=== PATIENT | female | born 1975 | race Two or more races ===

== ENCOUNTER 2024-06-17 10:27 | Outpatient (AMB) | payer MEDICAID, SELFPAY ==
[2024-06-17 11:10] VITALS: BP 129/88; PULSE 63; RESP 20; TEMP 36.6; O2SAT 97; BMI 30.4
--- NOTE | 2024-06-17 11:10 | ORTHONT_ITS ---
Vital signs 06/17/24 11:10 Height 1.52 m Height Method Measured Weight 70.392 kg Weight Measurement Method Standing Scale BMI 30.4 BP 129/88 H Blood Pressure Source Automatic Cuff Blood Pressure Location Left Upper Arm Position Sitting Respiration 20 Pulse 63 Pulse Source Monitor Temp 97.8 F Temp Source Temporal Artery Scan Pulse Oximetry (%) 97 Oxygen Delivery Method Room Air Med/Allergies Allergies & Medications Allergies No Known Allergies Allergy (Verified 06/17/24 11:11) Medication Reconciliation metformin 500 mg tablet 500 mg PO HS 07/11/23 [History Confirmed 06/17/24] naproxen 500 mg tablet,delayed release 500 mg PO Q12H PRN Pain 01/26/24 [History Confirmed 06/17/24] aspirin 81 mg tablet,delayed release 81 mg PO BID #60 tabs 01/29/24 [Rx Confirmed 06/17/24] doxycycline hyclate 100 mg tablet 100 mg PO BID #14 tabs 01/29/24 [Rx Confirmed 06/17/24] pregabalin 75 mg capsule 75 mg PO BID #45 caps 01/29/24 [Rx Confirmed 06/17/24] sennosides 8.6 mg-docusate sodium 50 mg tablet (Senna-S) 1 tab-cap PO QDAY #30 tabs 01/29/24 [Rx Confirmed 06/17/24] oxycodone 5 mg tablet 5 mg PO Q6H PRN pain #28 tabs 02/13/24 [Rx Confirmed 06/17/24] acetaminophen 500 mg tablet (Acetaminophen Extra Strength) 1,000 mg (2 x 500 mg) PO Q6H PRN pain #90 tabs 05/11/24 [Rx Confirmed 06/17/24] Subjective Visit Visit for: knee Immunization / Flu Flu Vaccine in the Last 12 Months: No Flu Vaccine Exclusion Criteria: Refused by Patient History of Present Illness Chief complaint: PRE OP LEFT TKA Patient is doing well. She reports that she is doing well. She is using no assistive device and is very happy. The left side is now affecting her quality of life and happiness. She has tried multiple antiinflammatories, injections, and PT. Personal History Red flag PMH: none Pain Pain level (0-10): 8 Pain duration: CONSTANT Pain location: inside (medial) (LEFT KNEE) Pain quality: sharp (LEFT KNEE) and aching (LEFT KNEE) Pain timing: night (LEFT KNEE) and increases with activity (LEFT KNEE) Associated signs & symptoms: none Ambulatory data Ambulatory device: none Treatments Number of previous injections: 3 Improvement with previous injections: No Number of Physical Therapy sessions: 3 Improvement with PT: No Improvement with NSAIDS: yes Review of Systems Review of Systems: All systems negative unless otherwise noted in HPI. Exam Exam Patient is in no acute distress and is cooperative with the examination today. Breathing is nonlabored. In no respiratory distress. Bilateral extremities were evaluated and demonstrates sensation intact to light touch. Palpable pedal pulses are present. No significant edema is present. Bilateral hips were examined. The patient has no pain with log roll of the hips. Internal rotation to 30 degrees and external rotation to 30 degrees is painless. Negative FADIR. The left knee was examined. The left knee is in [varus] alignment. Range of motion from [0-115] degrees. Knee is stable to varus and valgus as well as AP translation with <5mm. Patient has a [negative] Mc[place]. There is [no] pain with patellofemoral compression and [no] crepitus noted. The knee is [tender] to palpation [medially]. Right knee incision is clean, dry, and intact Assessment and Plan Problem List (1) History of total right knee replacement: Status: Acute Plan: Patient is doing well s/p r total knee replacement. She has been late to start outpatient PT but is very happy. She has significant knee pain in her left knee with [id number] arthritis. She would like to get her left knee replaced. We discussed her left total knee replacement including nonoperative and operative options. She is tried injections, anti-inflammatories, and physical therapy. She is scheduled for surgery on Friday., The nature and purpose of the total knee replacement, alternative method(s) of treatment, the material risks involved, and the possibility of complications were fully explained to the patient. The patient does NOT have any of the following contraindications to TKA: - Active infection of the knee joint, OR - Active systemic bacteremia, OR - Active skin infection or open wound at surgical site, OR - Neuropathic arthritis, OR - Severe, rapidly progressive neurological disease, OR - Severe medical condition that makes risks of surgery outweigh the potential benefit The patient was told the most common risks and complications associated with a total knee replacement include, but are not limited to: blood clots in the leg, fatal pulmonary embolism, dislocation of the prosthesis, intraoperative and postoperative fractures of the femur or tibia, infection, failure of the prosthesis or grafting materials, complications from anesthesia, reactions to blood transfusions, postoperative leg length inequality, instability of the knee replacement, nerve damage or injury, vascular injury, delayed wound healing, infection, other injury or even . In addition, there are risks associated with anesthesia given during this operation. Also, the patient was told that after undergoing a total knee replacement there may still be persistent pain or disability. The patient was informed that the success of this operation in part depends upon the mechanical devices which are going to be implanted and that these devices can fail or malfunction, and may need to be repaired or replaced and there are no guarantees as to the longevity of this device or its parts and that it or its parts could fail prematurely. The patient was also notified that during the course of surgery, there may be a need to use bone graft from donors, and that any bone graft used will be carefully screened for communicable diseases, including AIDS, hepatitis, Carlyle-Creutzfeldt, or other diseases, but despite the screening procedures, there is a small chance that they could contract one of these diseases. Finally, the patient was asked to follow completely and fully with all advice and recommended treatments, and that recovery and ultimate outcome are affected by their compliance with recommended treatment. We discussed the risks, benefits and treatment alternatives, and the patient is interested in proceeding with surgery. We will try to set this up as expeditiously as possible. Office Procedures GNS Level of Care Nursing/Assessment Patient Status: Established Patient Nursing Assessment/Reassesment: Medication Reconciliation, Update PMH in EMR and Vital Signs Coordination of Care: Complex Care/Chronic Disease 5 or more, Education Complex Pt/Fam, Consent,records obtained, informed consent, 1 Ins Authorization, Results/Orders obtained and Staff clarify orders Established Patient Charge Established Patient Point Assignment: 120 Established Patient Point Charge: EP Level 4 (120-155) Past Medical History Past Medical History Have you ever been diagnosed with any of the following: Neurological Problems Cerebrovascular Accident (CVA): No Transient Ischemic Attacks (TIA): No Dementia: No Alzheimer's Disease: No Parkinson's Disease: No Brain Tumor: No Meningitis: No Seizures: No Epilepsy: No Multiple Sclerosis: No Cerebral Palsy: No Amyotrophic Lateral Sclerosis (ALS/Carol Gehrig's): No Guillain-Progreso Syndrome: No Spina Bifida: No Paralysis: No Peripheral Neuropathy: No Vasques's Palsy: No Subdural Hematoma: No Migraine: No Head Trauma: No Spinal Cord Injury: No Traumatic Brain Injury: No Cardiology Problems Myocardial Infarction: No Cardiac Arrhythmia: No Atrial Fibrillation: No Angina: No Heart Murmur: No Coronary Artery Disease: No Atherosclerotic Heart Disease: No Peripheral Vascular Disease: No Hypercholesterolemia: No Aneurysm: No Congestive Heart Failure: No Congenital Heart Disease: No Valvular Heart Disease: No Rheumatic Fever: No Cardiomyopathy: No Edema: No Pericarditis: No Cellulitis: No Deep Vein Thrombosis: No Hypertension: No Hypotension: No Varicose Veins: No Respiratory Problems Chronic Obstructive Pulmonary Disease (COPD): No Asthma: No Bronchitis: No Emphysema: No Pneumonia: No Pulmonary Fibrosis: No Tuberculosis: No Pulmonary Embolism: No Pulmonary Edema: No Sleep Apnea: No CPAP Dependent: No Respiratory Aspiration: No Dyspnea: No Orthopnea: No Hx Cough: No Cough: No Wheezing: No Chest Deformities: No Smoking: No Smoking Cessation Counseling: No Smoking Exposure: No Tobacco Use: No Clubbing: No Exposure to Respiratory Irritants: No Intubation: No Stomache/Intestinal Problems Liver Cancer: No Hepatitis: No Cirrhosis: No Pancreatic Cancer: No Pancreatitis: No Celiac Disease: No Gall Bladder Disease: No Gastrointestinal Bleed: No Esophageal Varices: No Pool's Esophagus: No Colitis: No Ulcerative Colitis: No Diverticulitis: No Diverticulosis: No Ulcer: No Colorectal Cancer: No Irritable Bowel: No Crohn's Disease: No Obstructive Bowel: No Hiatal Hernia: No Hemorrhoids: No Gastroesophageal Reflux Disease: No Obesity: No Genital/Urinary Problems Renal Disease: No Kidney Stones: No Polycystic Kidney Disease: No Neurogenic Bladder: No Inguinal Hernia: No Dialysis: No Prostate Cancer: No Benign Prostatic Hyperplasia: No Reproductive Problems Breast Cancer: No Endometriosis: No Fibroids: No Genital Herpes: No Gonorrhea: No Pelvic Inflammatory Disease: No (last menses 2 yrs ago) Polycystic Ovarian Syndrome: No Previous Pregnancies: Yes Syphilis: No Testicular Cancer: No Uterine Prolapse: No Musculoskeletal Problems Muscular Dystrophy: No Myasthenia Gravis: No Marfan's Syndrome: No Bone Cancer: No Arthritis: Yes Rheumatoid Arthritis: No Osteoporosis: No Degenerative Disk Disease: No Gout: No Scoliosis: No Carpal Tunnel Syndrome: No Fibromyalgia: No Fractures: No Degenerative Joint Disease: No Osteomyelitis: No Poliovirus: No Head,Eye,Nose,Throat Problems Cataracts: No Glaucoma: No Blind: No Retinal Detachment: No Macular Degeneration: No Chronic Ear Infections: No Deafness: No Eye Prosthesis: No Endocrine Problems Diabetes Mellitus Type 1: No Diabetes Mellitus Type 2: Yes Hypoglycemia: No [place]'s Syndrome: No [place]'s Disease: No Hyperthyroidism: No Hypothyroidism: No Thyroid Cancer: No Parathyroid Disease: No Pituitary Disease: No Systemic Lupus Erythematosus: No Syndrome of Inappropriate Antidiuretic Hormone: No Adrenal Disease: No Graves' Disease: No Blood Problems Anemia: No Leukemia: No Hemophilia: No Thalassemia: No Sickle Cell Disease: No Clotting Problems: No Psychologic Problems Schizophrenia: No Recreational Drug Use: No Bipolar Disorder: No Depression: No Anxiety: No Behavior Problems: No Self-Mutilation: No Attention Deficit Disorder: No Attention Deficit Hyperactivity Disorder: No Depression: No Post Traumatic Stress Disorder: No Eating Disorder: No Other Problems Hospitalization: No Down Syndrome: No Autism: No Developmental Delay: No Cosmetic Surgery: No Shingles: No Falls: No Blood Transfusions: No Blood Transfusion Reaction: No Anesthesia Reactions: No Organ Transplant: No Chemotherapy: No Radiation Therapy: No Hyperbaric Therapy: No MRSA: No VRSA: No Vancomycin-Resistant Enterococci: No Human Immunodeficiency Virus (HIV): No Chicken Pox: Yes Measles: Yes Mumps: No Rubella (Serbian Measles): No Pertussis: No Klebsiella Pneumoniae Carbapenemase Producing Bacteria: No Clostridium Difficile: No Hepatitis A: No Hepatitis B: No Hepatitis C: No Communicable Disease: No Cancer: No Cervical Cancer: No Lung Cancer: No Ovarian Cancer: No Surgical History Angioplasty: No Appendectomy: No Bariatric Surgery: No Breast Surgery: No Cancer Surgery: No Carotid Endarterectomy: No Cholecystectomy: No Colectomy: No Colostomy: No Coronary Artery Bypass Graft: No Valve Replacement: No Herniorrhaphy: No Total Hip Replacement: No Total Knee Replacement: Yes Hysterectomy: No Pacemaker: No Sinus Surgery: No Splenectomy: No TAHBSO-Total Abdominal Hysterectomy: No Thyroidectomy: No Ureter Stent: No
== END 2024-06-17 11:13 | disposition home or self-care (01) ==
LOC: HODSRG 10:27
PROVIDERS: Supervising Provider Orthopaedic Surgery Adult Reconstructive Orthopaedic Surgery; Visit Provider Orthopaedic Surgery Adult Reconstructive Orthopaedic Surgery
DX: Z96.651 Presence of right artificial knee joint (principal); M25.562 Pain in left knee; M17.12 Unilateral primary osteoarthritis, left knee; E11.9 Type 2 diabetes mellitus without complications
CPT/HCPCS: 99214; G0463

== ENCOUNTER 2024-06-22 15:23 | Observation (INO) | payer MEDICAID, SELFPAY ==
[2024-06-17 11:43] VITALS: BMI 30.3
[2024-06-17 13:15] LABS: Basophils % (Auto) 1 % (0-2.5); Eosinophils # (Auto) 0.2 Thou/mm3 (0.0-0.5); Eosinophils % (Auto) 3 % (0-10); Hemoglobin 13.8 g/dL (12.0-16.0); Immature Granulocytes % (Auto) 0 % (0-0); Immature Granulocytes Auto 0.02 Thou/mm3 (0.00-0.00); Lymphocytes # (Auto) 2.9 Thou/mm3 (1.0-4.8); Lymphocytes % (Auto) 33 % (10-50); Mean Corpuscular HGB Conc 33.7 g/dl (31.0-37.0); Mean Corpuscular Hemoglobin 28.6 pg (25.0-35.0); Mean Corpuscular Volume 85 fL (80-100); Monocytes # (Auto) 0.6 Thou/mm3 (0.0-0.8); Monocytes % (Auto) 7 % (0-12); Neutrophils # (Auto) 5.1 Thou/mm3 (1.8-7.7); Neutrophils % (Auto) 57 % (37-80); Nucleated Red Blood Cell % 0 /100 WBC (0); Platelet Count 281 Thou/mm3 (140-440); RDW Standard Deviation 40.8 fL (36.4-46.3); Red Blood Count 4.82 Miln/mm3 (4.00-5.20); White Blood Count 8.9 Thou/mm3 (3.6-11.0)
[2024-06-17 13:25] LABS: INR 1.1 (0.9-1.3); Partial Thromboplastin Time 25.7 Seconds (22.0-36.0); Prothrombin Time 11.7 Seconds (9.0-12.2)
[2024-06-17 13:28] LABS: Alanine Aminotransferase 18 U/L (10-49); Albumin, Serum 5.1 gm/dL (3.5-5.0); Albumin/Globulin Ratio 1.8 (1.2-2.2); Alkaline Phosphatase 95 U/L (46-116); Anion Gap 6 (7-16); Aspartate Amino Transferase 18 U/L (0-34); BUN/Creatinine Ratio 23 Ratio (12-20); Bilirubin,Total 0.5 mg/dL (0.3-1.2); Blood Urea Nitrogen 14 mg/dL (9-23); Calcium 10.3 mg/dL (8.3-10.6); Calcium (Corrected) 10.3 mg/dL (8.5-10.1); Carbon Dioxide 28.7 mMol/L (20.0-31.0); Chloride 105 mMol/L (98-107); Creatinine (Component) 0.6 mg/dL (0.6-1.3); Estimated Creatinine Clearance 99.4 mL/min (>60); Globulin 2.9 gm/dL (2.3-3.5); Glucose 105 mg/dL (74-106); Osmolality,Calculated 279 (275-295); Potassium 4.2 mMol/L (3.4-5.1); Sodium 140 mMol/L (136-145); eGFR > 60 See Note
--- NOTE | 2024-06-18 15:30 | SUR.PREOP ---
Pt notified to come in at 1000 on Friday for surgery.
[2024-06-21] VITALS (21 sets, daily range): BP systolic 108–176; BP diastolic 67–103; PULSE 73–99; RESP 14–26; TEMP 36.2–36.6; O2SAT 95–100; BMI 29.7; BMI 26.0
[2024-06-21] MEDS: PREGABALIN 75 MG CAPSULE PO (11:47)
[2024-06-21] MEDS: ACETAMINOPHEN 325 MG TABLET 650 MG PO (11:47)
[2024-06-21] MEDS: MELOXICAM 7.5 MG TABLET PO (11:47)
[2024-06-21] MEDS: RINGERS LACTATED 1000 ML 1,000 ML 20 ML IV (11:50)
--- NOTE | 2024-06-21 14:00 | PD.SUROPNT ---
Date of Procedure 06/21/24 Pre Op Diagnosis left knee osteoarthritis Post Op Diagnosis left knee osteoarthritis Procedure left total knee replacement Findings full thickness cartilage loss and osteophytes Procedure Description Indication: The patient is a 49 year old who has a long history of left knee pain. X-rays show degenerative arthritis involving the knee. Over the past several years the patient has had increasing pain, progressive limitation in function. He has failed conservative measures including activity modification, physical therapy, injections, anti-inflammatories, and assistive devices. After a lengthy discussion of the risks and benefits, the patient presents now for total knee replacement. The nature and purpose of the total knee replacement, alternative method(s) of treatment, the material risks involved, and the possibility of complications were fully explained to the patient. The patient was told the most common risks and complications associated with a total knee replacement include, but are not limited to blood clots in the leg, fatal pulmonary embolism, dislocation of the prosthesis, intraoperative and postoperative fractures of the femur or tibia, infection, failure of the prosthesis or grafting materials, complications from anesthesia, reactions to blood transfusions, postoperative leg length inequality, instability of the knee replacement, nerve damage or injury, vascular injury, delayed wound healing, infections, other injury or even . In addition, there are risks associated with anesthesia given during this operation, temporary or permanent numbness on the skin lateral to the incision can be a complication unique to total knee surgery, and kneeling can be painful after knee replacement surgery. Also, the patient was told that after undergoing a total knee replacement there may still be pain or disability. We discussed with the patient that we will be using a robot-assisted technology. We discussed that there is a possibility of converting to manual instrumentation. The patient was informed that the success of this operation in part depends upon the mechanical devices which are going to be implanted and that these devices can fail or malfunction, and may need to be repaired or replaced and there are no guarantees as to the longevity of this device or its part and that it or its parts could fail prematurely. Finally, the patient was asked to follow completely and fully with all advice and recommended treatments, and that recovery and ultimate outcome are affected by their compliance with recommended treatment. Surgical technique: Patient was marked and consented in the pre-operative area. The patient was brought to the operating room and placed on the operating table in a supine position. Prior to positioning, a timeout procedure was performed between the surgeon, the anesthesiologist, and the nursing staff where the patient and the operative side were identified and confirmed. After adequate general anesthetic was obtained, the left lower extremity was prepped and draped in the usual sterile fashion. A weight based dose of Cefazolin were administered within 1 hour prior to incision. The robot was preregistered and calirated before the incision. The extremity was exsanguinated with an esmarch badge and tourniquet inflated to 250mmHg. A midline incision was made. A median parapatellar arthrotomy was made. The patella was subluxed laterally. A medial release was performed to expose the medial tibia. His femoral and tibial pins were placed through an intra incisional manner for both cases. Every effort was made to ensure that the distalmost aspect of the pin was hung in the second cortex. The arrays were then tightened several times to ensure that it was fixed for the remainder of the case. Both femoral and tibial checkpoints were then placed. We then went through the registration process of the bone. We then assessed the knee deformity and attempted to correct it. We also used the robot to aid in judging laxity in both extension and flexion. Final based on laxity and alignment we changed the preoperative assessment to obtain proper proper implant positioning and to correct deformity. Attention was then placed to the tibia. We made a tibial cut using the robot ensuring that both the MCL and the patella tendon were protected with retractors. We then went to the femur and made the posterior cut followed by the anterior cut and the anterior chamfer. The bone was then removed and we made a distal femur cut and a posterior chamfer cut. We verified all cuts. A trial reduction was performed with a size 2 femoral component and a size 2 keeled tibial component. The patella tracked centrally, and no lateral retinacular release was necessary. The trial implants were removed. The arrays, pins, and checkpoints were all removed. We performed a verification that all pins were removed. The cut bone surfaces were lavaged. A size 2 left femoral component, a size 2 keeled tibial component, were impacted into position. The knee was felt to be well balanced in the sagittal and coronal plane. The final 2x10 mm cruciate-substituting articular insert was impacted into the tibial tray. The knee was brought out to full extension, flexed up to 120 degrees. It was stable to varus and valgus stress and appropriately balanced in flexion and extension. The wounds were copiously irrigated following deflation of tourniquet. The medial retinaculum was reapproximated with #1 vicryl and quill. The subcutaneous tissues were closed with 0 and 2-0 interrupted Vicryl. The skin was closed with 3-0 Monofilament V loc suture. A sterile dressing was applied. The patient was transferred to a bed and brought to recovery in stable condition. The patient tolerated the procedure well. There were no intraoperative complications. Sponge and needle counts were correct times 2. As the attending surgeon, I attest I was present and performed the entire operation. Grafts/Implants Size 2 CR Femur Size 2 Tibia 10mm poly CS Anesthesia GETA Implants lee Pathology / specimen None Pathology comment: none Estimated Blood Loss 150 Disposition floor Surgeon Elias De Oliveira MD Surgical Staff Operation Date: 06/21/24 14:45 Case Staff FINE ARTS INSTRUCTOR: Ziggy Clark RNtechnology development intern: Bryce Nelson
--- NOTE | 2024-06-21 14:05 | XR_ITS ---
Examination: Right knee 2 views Technique one AP lateral right knee 2 views Exam date and time: June 21, 2024 at 1553 hours INDICATIONS: Postop knee replacement FINDINGS: Total right knee arthroplasty Satisfactory alignment Mild osteopenia IMPRESSION: Total right knee arthroplasty with satisfactory alignment
--- NOTE | 2024-06-21 14:32 | SUR.PHASEI ---
pt received from OR in recovery bay 7. pt asleep but responds to voice, breathing unlabored on oxymask 6l. v/s stable. pt dressing to left lower extremity cdi. report received from Isabel JIMENEZ and Esteban LAROSE.
[2024-06-21] MEDS: HYDROmorphone INJ 2 MG/ML VIAL 0.5 MG IVP ×2 (15:17→15:40)
[2024-06-21] MEDS: fentaNYL CIT INJ 50 mCg/ML AMP 2ML IV ×3 (16:11→18:30)
--- NOTE | 2024-06-21 18:40 | SUR.PHASEII ---
pt able to tolerate oral fluids without difficulty swallowing or nausea/vomiting.
[2024-06-21] MEDS: ACETAMINOPHEN 500 MG TABLET 1000 MG PO (19:51)
--- NOTE | 2024-06-21 20:10 | SUR.PHASEII ---
pt awake and alert, breathing unlabored on 2l nc. v/s stable. pt dressing to left lower extremity cdi. report called to Will RN. pt will be transferred to room at this time.
[2024-06-21] MEDS: oxyCODONE HCL 5 MG IR TAB 10 MG PO (20:29)
[2024-06-21] MEDS: ASPIRIN EC 81 MG TABEC PO (21:28)
[2024-06-22] VITALS (9 sets, daily range): BP systolic 104–148; BP diastolic 68–96; PULSE 74–85; RESP 16–20; TEMP 36.2–36.6; O2SAT 98–99; BMI 11.0
[2024-06-22] MEDS: ACETAMINOPHEN 500 MG TABLET 1000 MG PO ×4 (00:04→17:48)
[2024-06-22] MEDS: oxyCODONE HCL 5 MG IR TAB 10 MG PO ×3 (04:04→16:08)
[2024-06-22] MEDS: PANTOPRAZOLE INJ 40 MG VIAL IV (08:11)
[2024-06-22] MEDS: ASPIRIN EC 81 MG TABEC PO ×2 (08:11→20:14)
--- NOTE | 2024-06-22 14:47 | PC.SS ---
SW completed [facility] referral for short-term rehab, pending SNF placement.
--- NOTE | 2024-06-22 17:30 | PC.NURSE ---
called Dr. De Oliveira to let him know pt is still having pain after her oxy 2 tabs, states I can give the pt her Tylenol early.
[2024-06-22] MEDS: oxyCODONE HCL 5 MG IR TAB PO ×2 (20:13→22:25)
--- NOTE | 2024-06-22 22:26 | PC.NURSE ---
anahi to give additional dose of oxycodone [address] De Oliveira.
[2024-06-22] MEDS: KETOROLAC INJ 30 MG/ML VIAL 15 MG IVP (22:35)
[2024-06-23] VITALS: BP 141/87; PULSE 89; RESP 20; TEMP 36.1; O2SAT 100
[2024-06-23] MEDS: ACETAMINOPHEN 500 MG TABLET 1000 MG PO ×5 (00:14→23:19)
[2024-06-23 04:00] VITALS: BP 119/81; PULSE 83; RESP 18; TEMP 36.8; O2SAT 97
[2024-06-23] MEDS: oxyCODONE HCL 5 MG IR TAB 10 MG PO ×3 (06:09→18:55)
[2024-06-23 07:34] VITALS: BP 118/85; PULSE 90; RESP 18; TEMP 36.8; O2SAT 97
--- NOTE | 2024-06-23 08:43 | PC.SS ---
Addendum entered by Lian Templeton 06/23/24 15:39: LI received an email from [employer]; she requested all clinical documentation. LI faxed information to . Addendum entered by Lian Templeton 06/23/24 12:04: LI secure emailed patient's Sales Donor Recruitment Representative for [employer]. LI is pending a call back. Original Note: Clinical Training Specialist (LI) Lian met with patient to provide SNF options in [place]. Patient accepted [facility]. LI booked facility and now she is pending insurance authorization.
[2024-06-23] MEDS: ASPIRIN EC 81 MG TABEC PO ×2 (08:45→20:35)
--- NOTE | 2024-06-23 11:27 | PD.ORTHPN ---
Subjective Subjective Brief History: Status post left total knee replacement Narrative: Patient is a 49-year-old female who is status post left total knee replacement. She is 2 days postop. She is still here as apparently she has no one to help her at home. She went home with the last knee we did. This was a little bit of a surprise to me. She has been having persistent pain Exam Vital Signs Temp Pulse Resp BP Pulse Ox O2 Del Method O2 Flow Rate 98.2 F 90 18 118/85 H 97 Room Air 2 06/23/24 07:34 06/23/24 07:34 06/23/24 07:34 06/23/24 07:34 06/23/24 07:34 06/23/24 07:34 06/23/24 04:00 Additional findings Additional findings: Patient is in no acute distress and is cooperative with the examination today. Patient has a normal mood and affect. Breathing is nonlabored. In no respiratory distress. Bilateral extremities were evaluated and demonstrates sensation intact to light touch. Palpable pedal pulses are present. No significant edema is present. Right knee incision is clean dry and intact. The dressing is on. Objective - [facility] 06/17/24 11:15 06/17/24 11:15 Assessment & Plan Diagnosis (1) History of total right knee replacement: Status: Acute Assessment Additional comments: Patient is doing well status post right total knee replacement. She is going to be in dispo issue we recommend home but she would like to go to a [facility] facility or rehab. She will be a placement issue likely if this is to occur -Aspirin for DVT prophylaxis -Weightbearing as tolerated
[2024-06-23] MEDS: KETOROLAC INJ 30 MG/ML VIAL 15 MG IVP (11:51)
[2024-06-23] MEDS: PANTOPRAZOLE INJ 40 MG VIAL IV (11:52)
[2024-06-23 11:56] VITALS: BP 134/92; PULSE 103; RESP 18; TEMP 36.8; O2SAT 97
[2024-06-23 13:47] VITALS: BMI 11.0
[2024-06-23 16:00] VITALS: BP 132/89; PULSE 100; RESP 18; TEMP 36.8; O2SAT 97
[2024-06-23 20:00] VITALS: BP 136/58; PULSE 108; RESP 18; TEMP 37.2; O2SAT 98
[2024-06-24] VITALS (8 sets, daily range): BP systolic 119–138; BP diastolic 67–85; PULSE 67–98; RESP 17–98; TEMP 36.2–36.7; O2SAT 94–98
[2024-06-24] MEDS: oxyCODONE HCL 5 MG IR TAB 10 MG PO ×4 (00:59→20:48)
[2024-06-24] MEDS: ACETAMINOPHEN 500 MG TABLET 1000 MG PO ×3 (06:01→19:14)
[2024-06-24] MEDS: PANTOPRAZOLE INJ 40 MG VIAL IV (08:07)
[2024-06-24] MEDS: ASPIRIN EC 81 MG TABEC PO ×2 (08:08→20:14)
--- NOTE | 2024-06-24 09:27 | PC.SS ---
SS spoke to Terri [phone] who explained insurance authorization is still pending.
[2024-06-25] VITALS: BP 127/84; PULSE 98; RESP 17; TEMP 36.4; O2SAT 97
[2024-06-25] MEDS: ACETAMINOPHEN 500 MG TABLET 1000 MG PO ×3 (00:05→12:58)
[2024-06-25 04:00] VITALS: BP 131/83; PULSE 96; RESP 18; TEMP 36.4; O2SAT 97
[2024-06-25] MEDS: oxyCODONE HCL 5 MG IR TAB 10 MG PO ×2 (04:38→11:55)
[2024-06-25 07:00] VITALS: PULSE 84; RESP 18; RESP 98
[2024-06-25 07:49] VITALS: BP 120/85; PULSE 88; RESP 18; TEMP 36.3; O2SAT 94
--- NOTE | 2024-06-25 09:24 | PC.SS ---
SS received a call from Shoaib from [employer] requesting updated clinicals and PT note. SS faxed to [phone]. [facility] Auth # [id number]. Auth is pending at the time.
[2024-06-25] MEDS: PANTOPRAZOLE INJ 40 MG VIAL IV (10:38)
[2024-06-25] MEDS: ASPIRIN EC 81 MG TABEC PO (10:38)
--- NOTE | 2024-06-25 10:50 | PC.SS ---
Addendum entered by Cuca Bedoya 06/25/24 11:41: SS contacted Dr. De Oliveira and he informed SS that patient could discharge home with HH. Patient is able to ambulate and able to walk 120-140 ft. SS met with patient and she is agreeable to discharge home with HH. SS contacted Dr. De Oliveira and he informed SS he would input discharge orders with HH. Patient has no preference in HH agency. Original Note: SS was contacted by patient's nurse informing SS that Dr. De Oliveira would like SS to contact him. SS contacted Dr. De Oliveira, however did not answer. SS left Voicemail with call back number.
[2024-06-25 12:00] VITALS: BP 116/92; PULSE 99; RESP 20; TEMP 36.2; O2SAT 97
[2024-06-25 16:00] VITALS: BP 123/89; PULSE 87; RESP 18; TEMP 36.2; O2SAT 95
--- NOTE | 2024-06-25 16:10 | PC.NURSE ---
Pt discharged, states her son will not be able to be here until [id number] because he's coming from [facility]. mine car dispatcher Gayle notified.
--- NOTE | 2024-06-26 08:27 | PC.CM ---
late note 06/26/24 printed dc list for 06/25/24, pt dc disposition is Home with HH. Pending HH orders from Dr. De Oliveira.
--- NOTE | 2024-06-28 08:28 | PC.CM ---
called Dr. De Oliveira to place orders, left VM.
--- NOTE | 2024-06-29 09:45 | PC.CM ---
I spoke to Dr. Wahl office and they stated they are working on this patient's referral. they stated they send all their patients to [facility]. She states patient did not qualify for home health due to her age so they sent it to [facility] for outpatient physical therapy.
== END 2024-06-25 18:34 | disposition home health service (06) ==
LOC: S3NX 06-25 14:21 → S2EX 06-29 06:54
PROVIDERS: Anesthesiology; Admitting Provider Orthopaedic Surgery Adult Reconstructive Orthopaedic Surgery; PCP Family Medicine; Referring Provider Orthopaedic Surgery Adult Reconstructive Orthopaedic Surgery; Visit Provider Orthopaedic Surgery Adult Reconstructive Orthopaedic Surgery
PROC: (CPT 27447; principal; 2024-06-21 14:45)
DX: M17.12 Unilateral primary osteoarthritis, left knee (principal); M25.762 Osteophyte, left knee; Z96.651 Presence of right artificial knee joint
CPT/HCPCS: 27447; 20985; 36415; 73560; 80053; 85025; 85610; 85730; 87081; 96361; 96374; 97162; A4217; C1713; C1776; G0378; J0171; J1100; J1885; J2250; J2405; J2470; J2704; J2795; J3010; J3490; J7030; J7120; A4648; A4649; A9270

== ENCOUNTER 2024-07-09 11:14 | Outpatient (AMB) | payer MEDICAID, SELFPAY ==
[2024-07-09 11:36] VITALS: BP 124/83; PULSE 77; RESP 18; TEMP 36.6; O2SAT 97; BMI 24.5
--- NOTE | 2024-07-09 11:36 | PD.ORTHCLVIS ---
Vital signs 07/09/24 11:36 Height 1.65 m Height Method Stated Weight 66.706 kg Weight Measurement Method Standing Scale BMI 24.5 BP 124/83 Blood Pressure Source Automatic Cuff Blood Pressure Location Right Upper Arm Position Sitting Respiration 18 Pulse 77 Pulse Source Monitor Temp 97.8 F Temp Source Temporal Artery Scan Pulse Oximetry (%) 97 Oxygen Delivery Method Room Air Med/Allergies Allergies & Medications Allergies No Known Allergies Allergy (Verified 07/09/24 11:38) Medication Reconciliation celecoxib 200 mg capsule 200 mg PO BID 06/17/24 [History Confirmed 07/09/24] acetaminophen 500 mg tablet (Acetaminophen Extra Strength) 1,000 mg (2 x 500 mg) PO Q6H PRN pain #90 tabs 06/21/24 [Rx Confirmed 07/09/24] aspirin 81 mg tablet,delayed release 81 mg PO BID #60 tabs 06/21/24 [Rx Confirmed 07/09/24] doxycycline hyclate 100 mg tablet 100 mg PO BID #14 tabs 06/21/24 [Rx Confirmed 07/09/24] gabapentin 300 mg capsule 300 mg PO .qhs #30 caps 06/21/24 [Rx Confirmed 07/09/24] oxycodone 5 mg tablet 5 mg PO Q6H PRN pain #28 tabs 06/21/24 [Rx Confirmed 07/09/24] sennosides 8.6 mg-docusate sodium 50 mg tablet (Senna-S) 1 tab-cap PO QDAY #30 tabs 06/21/24 [Rx Confirmed 07/09/24] oxycodone 5 mg tablet 5 mg PO Q6H PRN pain #28 tabs 06/28/24 [Rx Confirmed 07/09/24] acetaminophen 500 mg tablet (Acetaminophen Extra Strength) 1,000 mg (2 x 500 mg) PO Q6H PRN pain #90 tabs 07/06/24 [Rx Confirmed 07/09/24] oxycodone 5 mg tablet 5 mg PO Q6H PRN pain #28 tabs 07/06/24 [Rx Confirmed 07/09/24] Subjective Visit Visit for: follow up visit, post op #1 and knee Immunization / Flu Flu Vaccine in the Last 12 Months: No Flu Vaccine Exclusion Criteria: No Exclusion Criteria History of Present Illness Chief complaint: 2 WEEKS POST OP Date of injury / onset of symptoms: 06/21 Patient is doing well 2 weeks status post left total knee replacement. He reports he has minimal swelling. SHe is happy Pain Pain level (0-10): 8 Pain duration: ALL DAY Pain location: inside (medial) and anterior Pain quality: sharp, dull and aching Pain timing: night, increases with activity and stairs Associated signs & symptoms: numbness Ambulatory data Ambulatory device: walker Treatments Improvement with previous injections: No Improvement with PT: No Improvement with NSAIDS: n/a Review of Systems Review of Systems: All systems negative unless otherwise noted in HPI. Exam Exam Patient is in no acute distress and is cooperative with the examination today. Breathing is nonlabored. In no respiratory distress. Bilateral extremities were evaluated and demonstrates sensation intact to light touch. Palpable pedal pulses are present. No significant edema is present. Bilateral hips were examined. The patient has no pain with log roll of the hips. Internal rotation to 30 degrees and external rotation to 30 degrees is painless. Negative FADIR. Left knee incision is clean dry and intact Right knee incision is clean, dry, and intact Assessment and Plan Problem List (1) History of total right knee replacement: Status: Acute Plan: Patient is doing well status post left total knee replacement. She has minimal swelling. She is using a walker Office Procedures GNS Level of Care Nursing/Assessment Patient Status: Established Patient Nursing Assessment/Reassesment: Medication Reconciliation, Update PMH in EMR and Vital Signs Coordination of Care: Complex Care and Chronic Disease 1-5, Education Complex Pt/Fam, Consent,records obtained, informed consent, Results/Orders obtained and Staff clarify orders Special Needs: Language special needs Established Patient Charge Established Patient Point Assignment: 95 Established Patient Point Charge: EP Level 3 (80-115) Past Medical History Past Medical History Have you ever been diagnosed with any of the following: Neurological Problems Cerebrovascular Accident (CVA): No Transient Ischemic Attacks (TIA): No Dementia: No Alzheimer's Disease: No Parkinson's Disease: No Brain Tumor: No Meningitis: No Seizures: No Epilepsy: No Multiple Sclerosis: No Cerebral Palsy: No Amyotrophic Lateral Sclerosis (ALS/Carol Gehrig's): No Guillain-[place] Syndrome: No Spina Bifida: No Paralysis: No Peripheral Neuropathy: No Vasques's Palsy: No Subdural Hematoma: No Migraine: No Head Trauma: No Spinal Cord Injury: No Traumatic Brain Injury: No Cardiology Problems Myocardial Infarction: No Cardiac Arrhythmia: No Atrial Fibrillation: No Angina: No Heart Murmur: No Coronary Artery Disease: No Atherosclerotic Heart Disease: No Peripheral Vascular Disease: No Hypercholesterolemia: No Aneurysm: No Congestive Heart Failure: No Congenital Heart Disease: No Valvular Heart Disease: No Rheumatic Fever: No Cardiomyopathy: No Edema: No Pericarditis: No Cellulitis: No Deep Vein Thrombosis: No Hypertension: No Hypotension: No Varicose Veins: No Respiratory Problems Chronic Obstructive Pulmonary Disease (COPD): No Asthma: No Bronchitis: No Emphysema: No Pneumonia: No Pulmonary Fibrosis: No Tuberculosis: No Pulmonary Embolism: No Pulmonary Edema: No Sleep Apnea: No CPAP Dependent: No Respiratory Aspiration: No Dyspnea: No Orthopnea: No Hx Cough: No Cough: No Wheezing: No Chest Deformities: No Smoking: No Smoking Cessation Counseling: No Smoking Exposure: No Tobacco Use: No Clubbing: No Exposure to Respiratory Irritants: No Intubation: No Stomache/Intestinal Problems Liver Cancer: No Hepatitis: No Cirrhosis: No Pancreatic Cancer: No Pancreatitis: No Celiac Disease: No Gall Bladder Disease: No Gastrointestinal Bleed: No Esophageal Varices: No Pool's Esophagus: No Colitis: No Ulcerative Colitis: No Diverticulitis: No Diverticulosis: No Ulcer: No Colorectal Cancer: No Irritable Bowel: No Crohn's Disease: No Obstructive Bowel: No Hiatal Hernia: No Hemorrhoids: No Gastroesophageal Reflux Disease: No Obesity: No Genital/Urinary Problems Renal Disease: No Kidney Stones: No Polycystic Kidney Disease: No Neurogenic Bladder: No Inguinal Hernia: No Dialysis: No Prostate Cancer: No Benign Prostatic Hyperplasia: No Reproductive Problems Breast Cancer: No Endometriosis: No Fibroids: No Genital Herpes: No Gonorrhea: No Pelvic Inflammatory Disease: No (last menses 2 yrs ago) Polycystic Ovarian Syndrome: No Previous Pregnancies: Yes Syphilis: No Testicular Cancer: No Uterine Prolapse: No Musculoskeletal Problems Muscular Dystrophy: No Myasthenia Gravis: No Marfan's Syndrome: No Bone Cancer: No Arthritis: Yes Rheumatoid Arthritis: No Osteoporosis: No Degenerative Disk Disease: No Gout: No Scoliosis: No Carpal Tunnel Syndrome: No Fibromyalgia: No Fractures: No Degenerative Joint Disease: No Osteomyelitis: No Poliovirus: No Head,Eye,Nose,Throat Problems Cataracts: No Glaucoma: No Blind: No Retinal Detachment: No Macular Degeneration: No Chronic Ear Infections: No Deafness: No Eye Prosthesis: No Endocrine Problems Diabetes Mellitus Type 1: No Diabetes Mellitus Type 2: No (pt said prediabetes, not taking the prescribed med) Hypoglycemia: No [place]'s Syndrome: No [place]ell's Disease: No Hyperthyroidism: No Hypothyroidism: No Thyroid Cancer: No Parathyroid Disease: No Pituitary Disease: No Systemic Lupus Erythematosus: No Syndrome of Inappropriate Antidiuretic Hormone: No Adrenal Disease: No Graves' Disease: No Blood Problems Anemia: No Leukemia: No Hemophilia: No Thalassemia: No Sickle Cell Disease: No Clotting Problems: No Psychologic Problems Schizophrenia: No Recreational Drug Use: No Bipolar Disorder: No Depression: No Anxiety: No Behavior Problems: No Self-Mutilation: No Attention Deficit Disorder: No Attention Deficit Hyperactivity Disorder: No Depression: No Post Traumatic Stress Disorder: No Eating Disorder: No Other Problems Hospitalization: No Down Syndrome: No Autism: No Developmental Delay: No Cosmetic Surgery: No Shingles: No Falls: No Blood Transfusions: No Blood Transfusion Reaction: No Anesthesia Reactions: No Organ Transplant: No Chemotherapy: No Radiation Therapy: No Hyperbaric Therapy: No MRSA: No VRSA: No Vancomycin-Resistant Enterococci: No Human Immunodeficiency Virus (HIV): No Chicken Pox: Yes Measles: Yes Mumps: No Rubella (Pashto Measles): No Pertussis: No Klebsiella Pneumoniae Carbapenemase Producing Bacteria: No Clostridium Difficile: No Hepatitis A: No Hepatitis B: No Hepatitis C: No Communicable Disease: No Cancer: No Cervical Cancer: No Lung Cancer: No Ovarian Cancer: No Surgical History Angioplasty: No Appendectomy: No Bariatric Surgery: No Breast Surgery: No Cancer Surgery: No Carotid Endarterectomy: No Cholecystectomy: No Colectomy: No Colostomy: No Coronary Artery Bypass Graft: No Valve Replacement: No Herniorrhaphy: No Total Hip Replacement: No Total Knee Replacement: Yes Hysterectomy: No Pacemaker: No Sinus Surgery: No Splenectomy: No TAHBSO-Total Abdominal Hysterectomy: No Thyroidectomy: No Ureter Stent: No
== END 2024-07-09 11:47 | disposition home or self-care (01) ==
LOC: HODSRG 11:14
PROVIDERS: Supervising Provider Orthopaedic Surgery Adult Reconstructive Orthopaedic Surgery; Visit Provider Orthopaedic Surgery Adult Reconstructive Orthopaedic Surgery
DX: Z96.651 Presence of right artificial knee joint (principal)
CPT/HCPCS: 99213; G0463

== ENCOUNTER 2024-08-13 14:15 | Outpatient (AMB) | payer MEDICAID, SELFPAY ==
[2024-08-13 15:11] VITALS: BP 131/82; PULSE 89; RESP 18; TEMP 36.3; O2SAT 99; BMI 25.0
--- NOTE | 2024-08-13 15:11 | ORTHONT_ITS ---
Vital signs 08/13/24 15:11 Height 1.65 m Height Method Stated Weight 68.209 kg Weight Measurement Method Standing Scale BMI 25.0 BP 131/82 H Blood Pressure Source Automatic Cuff Blood Pressure Location Left Upper Arm Position Sitting Respiration 18 Pulse 89 Pulse Source Monitor Temp 97.4 F Temp Source Temporal Artery Scan Pulse Oximetry (%) 99 Oxygen Delivery Method Room Air Med/Allergies Allergies & Medications Allergies No Known Allergies Allergy (Verified 08/13/24 15:12) Medication Reconciliation celecoxib 200 mg capsule 200 mg PO BID 06/17/24 [History Confirmed 08/13/24] acetaminophen 500 mg tablet (Acetaminophen Extra Strength) 1,000 mg (2 x 500 mg) PO Q6H PRN pain #90 tabs 06/21/24 [Rx Confirmed 08/13/24] aspirin 81 mg tablet,delayed release 81 mg PO BID #60 tabs 06/21/24 [Rx Confirmed 08/13/24] doxycycline hyclate 100 mg tablet 100 mg PO BID #14 tabs 06/21/24 [Rx Confirmed 08/13/24] gabapentin 300 mg capsule 300 mg PO .qhs #30 caps 06/21/24 [Rx Confirmed 08/13/24] oxycodone 5 mg tablet 5 mg PO Q6H PRN pain #28 tabs 06/21/24 [Rx Confirmed 08/13/24] sennosides 8.6 mg-docusate sodium 50 mg tablet (Senna-S) 1 tab-cap PO QDAY #30 tabs 06/21/24 [Rx Confirmed 08/13/24] acetaminophen 500 mg tablet (Acetaminophen Extra Strength) 1,000 mg (2 x 500 mg) PO Q6H PRN pain #90 tabs 07/06/24 [Rx Confirmed 08/13/24] oxycodone 5 mg tablet 5 mg PO Q6H PRN pain #28 tabs 07/06/24 [Rx Confirmed 08/13/24] oxycodone 5 mg tablet 5 mg PO Q6H PRN pain #28 tabs 07/19/24 [Rx Confirmed 08/13/24] Exam Exam Patient is in no acute distress and is cooperative with the examination today. Breathing is nonlabored. In no respiratory distress. Bilateral extremities were evaluated and demonstrates sensation intact to light touch. Palpable pedal pulses are present. No significant edema is present. Bilateral hips were examined. The patient has no pain with log roll of the hips. Internal rotation to 30 degrees and external rotation to 30 degrees is painless. Negative FADIR. Left knee incision is clean dry and intact. ROM is 0-110 Right knee incision is clean, dry, and intact.ROM is 0-115 Bilateral knee xrays demonstrate cementless total knee replacements in good alignment and position Assessment and Plan Problem List (1) History of total right knee replacement: Status: Acute Plan: Patient is doing well status post left total knee replacement. She has minimal swelling. She is using a cane We will see her back in 2 months. Office Procedures GNS Level of Care Nursing/Assessment Patient Status: Established Patient Nursing Assessment/Reassesment: Medication Reconciliation, Update PMH in EMR and Vital Signs Coordination of Care: Complex Care and Chronic Disease 1-5, Education Complex Pt/Fam, Consent,records obtained, informed consent, Results/Orders obtained and Staff clarify orders Special Needs: Language special needs Established Patient Charge Established Patient Point Assignment: 95 Established Patient Point Charge: EP Level 3 (80-115) MA Intake Visit Data Collection New Patient or Established: Established Patient (seen at [facility] within 3 years) Reason for Visit:: F/U Seen by Clinical Staff ONLY (RN/MA): No Yarn Comber Required: Yes PCP or OBGYN visit in last 3 months: Yes Hx Now: No Do You Feel Safe at Home: Yes Authorities Contacted: N/A Questionairres Past Medical History Past Medical History Have you ever been diagnosed with any of the following: Neurological Problems Cerebrovascular Accident (CVA): No Transient Ischemic Attacks (TIA): No Dementia: No Alzheimer's Disease: No Parkinson's Disease: No Brain Tumor: No Meningitis: No Seizures: No Epilepsy: No Multiple Sclerosis: No Cerebral Palsy: No Amyotrophic Lateral Sclerosis (ALS/Carol Gehrig's): No Guillain-[place] Syndrome: No Spina Bifida: No Paralysis: No Peripheral Neuropathy: No Vasques's Palsy: No Subdural Hematoma: No Migraine: No Head Trauma: No Spinal Cord Injury: No Traumatic Brain Injury: No Cardiology Problems Myocardial Infarction: No Cardiac Arrhythmia: No Atrial Fibrillation: No Angina: No Heart Murmur: No Coronary Artery Disease: No Atherosclerotic Heart Disease: No Peripheral Vascular Disease: No Hypercholesterolemia: No Aneurysm: No Congestive Heart Failure: No Congenital Heart Disease: No Valvular Heart Disease: No Rheumatic Fever: No Cardiomyopathy: No Edema: No Pericarditis: No Cellulitis: No Deep Vein Thrombosis: No Hypertension: No Hypotension: No Varicose Veins: No Respiratory Problems Chronic Obstructive Pulmonary Disease (COPD): No Asthma: No Bronchitis: No Emphysema: No Pneumonia: No Pulmonary Fibrosis: No Tuberculosis: No Pulmonary Embolism: No Pulmonary Edema: No Sleep Apnea: No CPAP Dependent: No Respiratory Aspiration: No Dyspnea: No Orthopnea: No Hx Cough: No Cough: No Wheezing: No Chest Deformities: No Smoking: No Smoking Cessation Counseling: No Smoking Exposure: No Tobacco Use: No Clubbing: No Exposure to Respiratory Irritants: No Intubation: No Stomache/Intestinal Problems Liver Cancer: No Hepatitis: No Cirrhosis: No Pancreatic Cancer: No Pancreatitis: No Celiac Disease: No Gall Bladder Disease: No Gastrointestinal Bleed: No Esophageal Varices: No Pool's Esophagus: No Colitis: No Ulcerative Colitis: No Diverticulitis: No Diverticulosis: No Ulcer: No Colorectal Cancer: No Irritable Bowel: No Crohn's Disease: No Obstructive Bowel: No Hiatal Hernia: No Hemorrhoids: No Gastroesophageal Reflux Disease: No Obesity: No Genital/Urinary Problems Renal Disease: No Kidney Stones: No Polycystic Kidney Disease: No Neurogenic Bladder: No Inguinal Hernia: No Dialysis: No Prostate Cancer: No Benign Prostatic Hyperplasia: No Reproductive Problems Breast Cancer: No Endometriosis: No Fibroids: No Genital Herpes: No Gonorrhea: No Pelvic Inflammatory Disease: No (last menses 2 yrs ago) Polycystic Ovarian Syndrome: No Previous Pregnancies: Yes Syphilis: No Testicular Cancer: No Uterine Prolapse: No Musculoskeletal Problems Muscular Dystrophy: No Myasthenia Gravis: No Marfan's Syndrome: No Bone Cancer: No Arthritis: Yes Rheumatoid Arthritis: No Osteoporosis: No Degenerative Disk Disease: No Gout: No Scoliosis: No Carpal Tunnel Syndrome: No Fibromyalgia: No Fractures: No Degenerative Joint Disease: No Osteomyelitis: No Poliovirus: No Head,Eye,Nose,Throat Problems Cataracts: No Glaucoma: No Blind: No Retinal Detachment: No Macular Degeneration: No Chronic Ear Infections: No Deafness: No Eye Prosthesis: No Endocrine Problems Diabetes Mellitus Type 1: No Diabetes Mellitus Type 2: No (pt said prediabetes, not taking the prescribed med) Hypoglycemia: No Vidya's Syndrome: No [place]'s Disease: No Hyperthyroidism: No Hypothyroidism: No Thyroid Cancer: No Parathyroid Disease: No Pituitary Disease: No Systemic Lupus Erythematosus: No Syndrome of Inappropriate Antidiuretic Hormone: No Adrenal Disease: No Graves' Disease: No Blood Problems Anemia: No Leukemia: No Hemophilia: No Thalassemia: No Sickle Cell Disease: No Clotting Problems: No Psychologic Problems Schizophrenia: No Recreational Drug Use: No Bipolar Disorder: No Depression: No Anxiety: No Behavior Problems: No Self-Mutilation: No Attention Deficit Disorder: No Attention Deficit Hyperactivity Disorder: No Depression: No Post Traumatic Stress Disorder: No Eating Disorder: No Other Problems Hospitalization: No Down Syndrome: No Autism: No Developmental Delay: No Cosmetic Surgery: No Shingles: No Falls: No Blood Transfusions: No Blood Transfusion Reaction: No Anesthesia Reactions: No Organ Transplant: No Chemotherapy: No Radiation Therapy: No Hyperbaric Therapy: No MRSA: No VRSA: No Vancomycin-Resistant Enterococci: No Human Immunodeficiency Virus (HIV): No Chicken Pox: Yes Measles: Yes Mumps: No Rubella (Ind[place]ian Measles): No Pertussis: No Klebsiella Pneumoniae Carbapenemase Producing Bacteria: No Clostridium Difficile: No Hepatitis A: No Hepatitis B: No Hepatitis C: No Communicable Disease: No Cancer: No Cervical Cancer: No Lung Cancer: No Ovarian Cancer: No Surgical History Angioplasty: No Appendectomy: No Bariatric Surgery: No Breast Surgery: No Cancer Surgery: No Carotid Endarterectomy: No Cholecystectomy: No Colectomy: No Colostomy: No Coronary Artery Bypass Graft: No Valve Replacement: No Herniorrhaphy: No Total Hip Replacement: No Total Knee Replacement: Yes Hysterectomy: No Pacemaker: No Sinus Surgery: No Splenectomy: No TAHBSO-Total Abdominal Hysterectomy: No Thyroidectomy: No Ureter Stent: No Subjective Visit Visit for: follow up visit Immunization / Flu Flu Vaccine in the Last 12 Months: No Flu Vaccine Exclusion Criteria: No Exclusion Criteria History of Present Illness Chief complaint: left knee pain Patient is doing well s/p L TKA. She has minimal pain and reports that this knee is recovery. Pain Pain level (0-10): 6 Pain duration: ON AND OFF Pain location: inside (medial) Pain quality: aching Pain timing: increases with activity Associated signs & symptoms: none Ambulatory data Ambulatory device: cane Treatments Improvement with previous injections: No Improvement with PT: No Improvement with NSAIDS: no Review of Systems Review of Systems: All systems negative unless otherwise noted in HPI.
== END 2024-08-13 15:18 | disposition home or self-care (01) ==
LOC: HODSRG 14:15
PROVIDERS: PCP Family Medicine; Referring Provider Family Medicine; Supervising Provider Orthopaedic Surgery Adult Reconstructive Orthopaedic Surgery; Visit Provider Orthopaedic Surgery Adult Reconstructive Orthopaedic Surgery
DX: Z96.652 Presence of left artificial knee joint (principal); R60.9 Edema, unspecified
CPT/HCPCS: 99213; G0463

== ENCOUNTER 2024-11-04 13:43 | Outpatient (AMB) | payer MEDICAID, SELFPAY ==
[2024-11-04 14:02] VITALS: BP 118/74; PULSE 82; RESP 16; TEMP 36.8; O2SAT 98; BMI 25.9
--- NOTE | 2024-11-04 14:02 | ORTHONT_ITS ---
Vital signs 11/04/24 14:02 Height 1.65 m Height Method Stated Weight 70.562 kg Weight Measurement Method Standing Scale BMI 25.9 BP 118/74 Blood Pressure Source Automatic Cuff Blood Pressure Location Right Upper Arm Position Sitting Respiration 16 Pulse 82 Pulse Source Monitor Temp 98.3 F Temp Source Temporal Artery Scan Pulse Oximetry (%) 98 Oxygen Delivery Method Room Air Med/Allergies Allergies & Medications Allergies No Known Allergies Allergy (Verified 11/04/24 14:03) Medication Reconciliation celecoxib 200 mg capsule 200 mg PO BID 06/17/24 [History Confirmed 11/04/24] acetaminophen 500 mg tablet (Acetaminophen Extra Strength) 1,000 mg (2 x 500 mg) PO Q6H PRN pain #90 tabs 06/21/24 [Rx Confirmed 11/04/24] aspirin 81 mg tablet,delayed release 81 mg PO BID #60 tabs 06/21/24 [Rx Confirmed 11/04/24] doxycycline hyclate 100 mg tablet 100 mg PO BID #14 tabs 06/21/24 [Rx Confirmed 11/04/24] gabapentin 300 mg capsule 300 mg PO .qhs #30 caps 06/21/24 [Rx Confirmed 11/04/24] oxycodone 5 mg tablet 5 mg PO Q6H PRN pain #28 tabs 06/21/24 [Rx Confirmed 11/04/24] sennosides 8.6 mg-docusate sodium 50 mg tablet (Senna-S) 1 tab-cap PO QDAY #30 tabs 06/21/24 [Rx Confirmed 11/04/24] acetaminophen 500 mg tablet (Acetaminophen Extra Strength) 1,000 mg (2 x 500 mg) PO Q6H PRN pain #90 tabs 07/06/24 [Rx Confirmed 11/04/24] oxycodone 5 mg tablet 5 mg PO Q6H PRN pain #28 tabs 07/06/24 [Rx Confirmed 11/04/24] oxycodone 5 mg tablet 5 mg PO Q6H PRN pain #28 tabs 07/19/24 [Rx Confirmed 11/04/24] Exam Exam Patient is in no acute distress and is cooperative with the examination today. Breathing is nonlabored. In no respiratory distress. Bilateral extremities were evaluated and demonstrates sensation intact to light touch. Palpable pedal pulses are present. No significant edema is present. Bilateral hips were examined. The patient has no pain with log roll of the hips. Internal rotation to 30 degrees and external rotation to 30 degrees is painless. Negative FADIR. Left knee incision is clean dry and intact. ROM is 0-110 Right knee incision is clean, dry, and intact.ROM is 0-115 Bilateral knee xrays demonstrate cementless total knee replacements in good alignment and position Assessment and Plan Problem List (1) History of total right knee replacement: Status: Acute Plan: Patient is doing well status post left total knee replacement. She is not using any assistive device and is very happy with her pain relief. We can see her in approximately 1 year for routine followup. Office Procedures GNS Level of Care Nursing/Assessment Patient Status: Established Patient Nursing Assessment/Reassesment: Medication Reconciliation and Update PMH in EMR Coordination of Care: Complex Care and Chronic Disease 1-5, Consent,records obtained, informed consent, Education Simp Pt/Fam, Results/Orders obtained and Staff clarify orders Special Needs: Language special needs (INDONESIAN ) Established Patient Charge Established Patient Point Assignment: 75 Established Patient Point Charge: EP Level 2 (40-75) MA Intake Visit Data Collection New Patient or Established: Established Patient (seen at [facility] within 3 years) Reason for Visit:: 2 MONTH FU S/P TKA Seen by Clinical Staff ONLY (RN/MA): No Hip Hop Performers Required: Yes PCP or OBGYN visit in last 3 months: Yes Hx Now: No Do You Feel Safe at Home: Yes Authorities Contacted: N/A Questionairres Past Medical History Past Medical History Have you ever been diagnosed with any of the following: Neurological Problems Cerebrovascular Accident (CVA): No Transient Ischemic Attacks (TIA): No Dementia: No Alzheimer's Disease: No Parkinson's Disease: No Brain Tumor: No Meningitis: No Seizures: No Epilepsy: No Multiple Sclerosis: No Cerebral Palsy: No Amyotrophic Lateral Sclerosis (ALS/Carol Gehrig's): No Guillain-[place] Syndrome: No Spina Bifida: No Paralysis: No Peripheral Neuropathy: No Vasques's Palsy: No Subdural Hematoma: No Migraine: No Head Trauma: No Spinal Cord Injury: No Traumatic Brain Injury: No Cardiology Problems Myocardial Infarction: No Cardiac Arrhythmia: No Atrial Fibrillation: No Angina: No Heart Murmur: No Coronary Artery Disease: No Atherosclerotic Heart Disease: No Peripheral Vascular Disease: No Hypercholesterolemia: No Aneurysm: No Congestive Heart Failure: No Congenital Heart Disease: No Valvular Heart Disease: No Rheumatic Fever: No Cardiomyopathy: No Edema: No Pericarditis: No Cellulitis: No Deep Vein Thrombosis: No Hypertension: No Hypotension: No Varicose Veins: No Respiratory Problems Chronic Obstructive Pulmonary Disease (COPD): No Asthma: No Bronchitis: No Emphysema: No Pneumonia: No Pulmonary Fibrosis: No Tuberculosis: No Pulmonary Embolism: No Pulmonary Edema: No Sleep Apnea: No CPAP Dependent: No Respiratory Aspiration: No Dyspnea: No Orthopnea: No Hx Cough: No Cough: No Wheezing: No Chest Deformities: No Smoking: No Smoking Cessation Counseling: No Smoking Exposure: No Tobacco Use: No Clubbing: No Exposure to Respiratory Irritants: No Intubation: No Stomache/Intestinal Problems Liver Cancer: No Hepatitis: No Cirrhosis: No Pancreatic Cancer: No Pancreatitis: No Celiac Disease: No Gall Bladder Disease: No Gastrointestinal Bleed: No Esophageal Varices: No Pool's Esophagus: No Colitis: No Ulcerative Colitis: No Diverticulitis: No Diverticulosis: No Ulcer: No Colorectal Cancer: No Irritable Bowel: No Crohn's Disease: No Obstructive Bowel: No Hiatal Hernia: No Hemorrhoids: No Gastroesophageal Reflux Disease: No Obesity: No Genital/Urinary Problems Renal Disease: No Kidney Stones: No Polycystic Kidney Disease: No Neurogenic Bladder: No Inguinal Hernia: No Dialysis: No Reproductive Problems Breast Cancer: No Endometriosis: No Fibroids: No Genital Herpes: No Gonorrhea: No Pelvic Inflammatory Disease: No (last menses 2 yrs ago) Polycystic Ovarian Syndrome: No Previous Pregnancies: Yes Syphilis: No Uterine Prolapse: No Musculoskeletal Problems Muscular Dystrophy: No Myasthenia Gravis: No Marfan's Syndrome: No Bone Cancer: No Arthritis: Yes Rheumatoid Arthritis: No Osteoporosis: No Degenerative Disk Disease: No Gout: No Scoliosis: No Carpal Tunnel Syndrome: No Fibromyalgia: No Fractures: No Degenerative Joint Disease: No Osteomyelitis: No Poliovirus: No Head,Eye,Nose,Throat Problems Cataracts: No Glaucoma: No Blind: No Retinal Detachment: No Macular Degeneration: No Chronic Ear Infections: No Deafness: No Eye Prosthesis: No Endocrine Problems Diabetes Mellitus Type 1: No Diabetes Mellitus Type 2: No (pt said prediabetes, not taking the prescribed med) Hypoglycemia: No Vidya's Syndrome: No Eldridge's Disease: No Hyperthyroidism: No Hypothyroidism: No Thyroid Cancer: No Parathyroid Disease: No Pituitary Disease: No Systemic Lupus Erythematosus: No Syndrome of Inappropriate Antidiuretic Hormone: No Adrenal Disease: No Graves' Disease: No Blood Problems Anemia: No Leukemia: No Hemophilia: No Thalassemia: No Sickle Cell Disease: No Clotting Problems: No Psychologic Problems Schizophrenia: No Recreational Drug Use: No Bipolar Disorder: No Depression: No Anxiety: No Behavior Problems: No Self-Mutilation: No Attention Deficit Disorder: No Attention Deficit Hyperactivity Disorder: No Depression: No Post Traumatic Stress Disorder: No Eating Disorder: No Other Problems Hospitalization: No Down Syndrome: No Autism: No Developmental Delay: No Cosmetic Surgery: No Shingles: No Falls: No Blood Transfusions: No Blood Transfusion Reaction: No Anesthesia Reactions: No Organ Transplant: No Chemotherapy: No Radiation Therapy: No Hyperbaric Therapy: No MRSA: No VRSA: No Vancomycin-Resistant Enterococci: No Human Immunodeficiency Virus (HIV): No Chicken Pox: Yes Measles: Yes Mumps: No Rubella (Chinese Measles): No Pertussis: No Klebsiella Pneumoniae Carbapenemase Producing Bacteria: No Clostridium Difficile: No Hepatitis A: No Hepatitis B: No Hepatitis C: No Communicable Disease: No Cancer: No Cervical Cancer: No Lung Cancer: No Ovarian Cancer: No Surgical History Angioplasty: No Appendectomy: No Bariatric Surgery: No Breast Surgery: No Cancer Surgery: No Carotid Endarterectomy: No Cholecystectomy: No Colectomy: No Colostomy: No Coronary Artery Bypass Graft: No Valve Replacement: No Herniorrhaphy: No Total Hip Replacement: No Total Knee Replacement: Yes Hysterectomy: No Pacemaker: No Sinus Surgery: No Splenectomy: No TAHBSO-Total Abdominal Hysterectomy: No Thyroidectomy: No Ureter Stent: No Subjective Visit Visit for: follow up visit and knee (BILAT KNEE ) Immunization / Flu Flu Vaccine in the Last 12 Months: No Flu Vaccine Exclusion Criteria: Refused by Patient History of Present Illness Chief complaint: left knee pain Patient is doing well s/p L TKA. She has minimal pain and reports that she is doing well Personal History Red flag PMH: none Pain Pain level (0-10): 0 Pain duration: ON AND OFF Pain location: inside (medial) Pain quality: aching Pain timing: increases with activity Associated signs & symptoms: none Ambulatory data Ambulatory device: none Treatments Improvement with previous injections: No Improvement with PT: No Improvement with NSAIDS: n/a Review of Systems Review of Systems: All systems negative unless otherwise noted in HPI.
== END 2024-11-04 14:19 | disposition home or self-care (01) ==
LOC: HODSRG 13:43
PROVIDERS: PCP Family Medicine; Referring Provider Family Medicine; Supervising Provider Orthopaedic Surgery Adult Reconstructive Orthopaedic Surgery; Visit Provider Orthopaedic Surgery Adult Reconstructive Orthopaedic Surgery
DX: Z96.653 Presence of artificial knee joint, bilateral (principal); M25.562 Pain in left knee
CPT/HCPCS: 99212; G0463